=== PATIENT | female | born 1965 | race Caucasian/White ===

== ENCOUNTER 2017-10-12 19:47 | Observation (INO) | payer BC ==
[2017-10-12] MEDS ORDERED: SODIUM CHLORIDE 0.9% 1,000 ML IV STA (20:20)
[2017-10-12] MEDS ORDERED: NITROGLYCERIN SL TABS 0.4 MG TAB SUBLINGUAL STA (20:20)
[2017-10-12] MEDS ORDERED: ASPIRIN 81 MG PO STA (20:20)
--- NOTE | 2017-10-12 20:25 | ED ---
Chest Pain HPI - General Chief Complaint: Chest Pain Stated Complaint: chest pain Time Seen by Provider: 10/12/17 20:10 Source: patient, RN notes reviewed Mode of arrival: wheelchair Limitations: no limitations - History of Present Illness Initial Comments: This is a 52-year-old female with no prior history of heart disease who was cutting grass today started developing burning left-sided chest pain she has some nausea lightheadedness and dizziness. She did take an 81 mg aspirin. She states the pain waxes and wanes it maximizes 11/19 he has also radiated to her back. She has no cough or phlegm production no other modifying factors at this time. She was using a push mower at the time to cut the grass. MD Complaint: chest pain - Related Data Home Medications Medication Instructions Recorded Confirmed Escitalopram Oxalate [Lexapro] 10 mg PO DAILY 01/18/15 01/21/15 Hydrochlorothiazide 25 mg PO Q48H 01/18/15 01/21/15 Levothyroxine Sodium [Synthroid] 112 mcg PO HS 01/18/15 01/21/15 Lisinopril [Zestril] 2.5 mg PO DAILY 01/18/15 01/21/15 Omeprazole [PriLOSEC] 20 mg PO AC-BRKFST 01/18/15 01/21/15 Naproxen Sodium [Aleve] 440 mg PO DAILY 01/21/15 01/21/15 Selenium 100 mcg PO DAILY 01/21/15 01/21/15 Allergies Allergy/AdvReac Type Severity Reaction Status Date / Time cefaclor [From Ceclor] Allergy Rash/Hives Verified 10/12/17 19:53 celecoxib [From Celebrex] Allergy Rash/Hives, Verified 10/12/17 19:53 RED SKIN prednisone Allergy Dyspnea Verified 10/12/17 19:53 Review of Systems ROS Statement: Those systems with pertinent positive or pertinent negative responses have been documented in the HPI. ROS Other: All systems not noted in ROS Statement are negative. EKG Findings - EKG Results: EKG: interpreted by MAUREEN (Normal sinus rhythm of 98. Interval 138 QRS duration 98 QT since QTC of 366/[address]-T wave changes), sinus rhythm Past Medical History Past Medical History: GERD/Reflux, Hypertension, Thyroid Disorder Additional Past Medical History / Comment(s): HIATAL HERNIA History of Any Multi-Drug Resistant Organisms: None Reported Past Surgical History: Appendectomy, Cholecystectomy, Tonsillectomy, Tubal Ligation, Uterine Ablation Additional Past Surgical History / Comment(s): EYE SURGERY-BILATERAL, Past Anesthesia/Blood Transfusion Reactions: Motion Sickness, Postoperative Nausea & Vomiting (PONV) Past Psychological History: Anxiety, Depression Smoking Status: Former smoker Past Alcohol Use History: Occasional Past Drug Use History: None Reported - Past Family History Father Family Medical History: Cancer General Exam - General Exam Comments Initial Comments: This is a well-developed well-nourished awake alert oriented 3 female Limitations: no limitations General appearance: alert, anxious Head exam: Present: atraumatic, normocephalic, normal inspection Eye exam: Present: normal appearance, PERRL, EOMI. Absent: scleral icterus, conjunctival injection, periorbital swelling ENT exam: Present: normal exam, mucous membranes moist Neck exam: Present: normal inspection. Absent: tenderness, meningismus, lymphadenopathy Respiratory exam: Present: normal lung sounds bilaterally, chest wall tenderness (Reproducible tenderness palpation of the left chest wall and over the left paraspinous muscles between his scapula. This does not reproduce the patient's chief complaint pain). Absent: respiratory distress, wheezes, rales, rhonchi, stridor Cardiovascular Exam: Present: regular rate, normal rhythm, normal heart sounds. Absent: systolic murmur, diastolic murmur, rubs, gallop, clicks GI/Abdominal exam: Present: soft, normal bowel sounds. Absent: distended, tenderness, guarding, rebound, rigid Extremities exam: Present: normal inspection, full ROM, normal capillary refill. Absent: tenderness, pedal edema, joint swelling, calf tenderness Back exam: Present: normal inspection Neurological exam: Present: alert, oriented X3, CN II-XII intact Psychiatric exam: Present: normal affect, normal mood Skin exam: Present: warm, dry, intact, normal color. Absent: rash Course Vital Signs 10/12/17 10/12/17 10/12/17 19:49 20:20 20:29 Temperature 98.1 F Pulse Rate 108 H 75 Pulse Rate [ 91 Apical] Respiratory 20 18 Rate Blood Pressure 167/101 158/84 O2 Sat by Pulse 97 99 Oximetry Chest Pain MDM - MDM I did review the imaging and report no acute findings. Patient is having still intermittent episodes of chest discomfort her initial workup was negative however it's difficult to distinguish the seemingly reproducible pain from possible cardiac etiology. Patient be admitted with cardiology consultation Critical Care Time Critical Care Time: Yes Critical Care Time: 31 minutes of critical care time which includes initial presentation with history physical labs x-rays several reevaluation the patient discussed with patient regarding findings discussed with the admitting service admission orders and documentation of the above Disposition Clinical Impression: Unstable angina, Chest wall syndrome Disposition: ADMITTED IP TO THIS [facility] Condition: Stable Referrals: Erica Maradiaga III, MD [Primary Care Provider] - 1-2 days
[2017-10-12 20:32] LABS: Basophils % (A) 1 %; Eosinophils # (A) 0.2 k/uL (0-0.7); Eosinophils % (A) 3 %; HCT 43.9 % (34.0-46.0); HGB 15.4 gm/dL (11.4-16.0); Lymphocytes # (A) 2.6 k/uL (1.0-4.8); Lymphocytes % (A) 42 %; MCH 31.1 pg (25.0-35.0); MCV 88.8 fL (80.0-100.0); Mean Platelet Volume 7.7; Monocytes # (A) 0.4 k/uL (0-1.0); Monocytes % (A) 7 %; Neutrophils # (A) 2.6 k/uL (1.3-7.7); Neutrophils % (A) 43 %; Platelet Count 218 k/uL (150-450); RBC 4.94 m/uL (3.80-5.40); RDW 14.6 % (11.5-15.5); WBC 6.1 k/uL (3.8-10.6)
[2017-10-12 20:45] LABS: D-Dimer 0.47 mg/L FEU (<0.60); Partial Thromboplastin Time 22.9 sec (22.0-30.0); Prothrombin Time 9.8 sec (9.0-12.0)
--- NOTE | 2017-10-12 20:50 | XR ---
EXAMINATION: XR chest 2V DATE AND TIME: 10/12/2017 8:39 PM ORDERING PROVIDER: Elmer Colunga MD CLINICAL INDICATION: Chest Pain TECHNIQUE: PA and lateral COMPARISON: 09/28/2009 DESCRIPTION: The overlying soft tissues are prominent. Given this factor, the lungs appear to be yazmin r. The pleural spaces are negative. The cardiac silhouette is not enlarged. The mediastinal and pleur al silhouettes are unremarkable. The skeletal structures are intact without focal findings. IMPRESSION: NO ACUTE PROCESS.
[2017-10-12 20:52] LABS: ALT 116 U/L (9-52); AST 96 U/L (14-36); Albumin 4.6 g/dL (3.5-5.0); Alkaline Phosphatase 96 U/L (38-126); Amylase 59 U/L (30-110); Anion Gap 16 mmol/L; Blood Urea Nitrogen 15 mg/dL (7-17); Calcium 10.2 mg/dL (8.4-10.2); Carbon Dioxide 28 mmol/L (22-30); Chloride 97 mmol/L (98-107); Glucose 131 mg/dL (74-99); Lipase 252 U/L (23-300); Magnesium 1.6 mg/dL (1.6-2.3); Potassium 3.5 mmol/L (3.5-5.1); Sodium 141 mmol/L (137-145); Total Bilirubin 1.1 mg/dL (0.2-1.3); Total Protein 7.9 g/dL (6.3-8.2)
[2017-10-12 20:56] LABS: Creatine Kinase 22 U/L (30-135)
[2017-10-12 21:09] LABS: Troponin I <0.012 ng/mL (0.000-0.034)
[2017-10-12] MEDS ORDERED: NITROGLYCERIN SL TABS 0.4 MG TAB SUBLINGUAL PRN (21:53)
[2017-10-12] MEDS ORDERED: HEPARIN SODIUM,PORCINE 5,000 UNIT/ML 1 ML VIAL IV ONE (21:53)
[2017-10-12] MEDS ORDERED: SODIUM CHLORIDE 0.9% 1,000 ML IV SCH (22:00)
[2017-10-12] MEDS ORDERED: HEPARIN SODIUM,PORCINE/D5W PMX 25,000 UNIT in DEXTROSE/WATER 1 500ML.BAG IV SCH (22:15)
[2017-10-12] MEDS: NITROGLYCERIN OINT 1 INCH/GM PACKET TOPICAL SCH (22:31)
[2017-10-12 22:55] VITALS: BMI 39.1
[2017-10-12] MEDS ORDERED: LEVOTHYROXINE 112 MCG TAB PO STA (23:01)
[2017-10-13 02:15] LABS: Creatine Kinase <20 U/L (30-135)
[2017-10-13 02:27] LABS: Troponin I <0.012 ng/mL (0.000-0.034)
[2017-10-13 05:28] LABS: Cholesterol 189 mg/dL (<200); HDL Cholesterol 52 mg/dL (40-60); LDL Cholesterol,Calculated 111 mg/dL (0-99); Triglycerides 132 mg/dL (<150)
[2017-10-13 05:37] VITALS: PULSE 80; RESP 16
[2017-10-13] MEDS: NITROGLYCERIN OINT 1 INCH/GM PACKET TOPICAL SCH ×2 (06:25→11:42)
[2017-10-13] MEDS ORDERED: PANTOPRAZOLE 40 MG TABLET PO SCH (07:30)
[2017-10-13 08:09] LABS: Creatine Kinase <20 U/L (30-135)
[2017-10-13 08:22] LABS: Creatine Kinase MB 0.9 ng/mL (0.0-2.4); Troponin I <0.012 ng/mL (0.000-0.034)
[2017-10-13] MEDS ORDERED: ASPIRIN 325 MG TAB PO SCH (09:00)
[2017-10-13] MEDS ORDERED: LISINOPRIL 2.5 MG TAB PO SCH (09:00)
[2017-10-13] MEDS ORDERED: HYDROCHLOROTHIAZIDE 25 MG TAB PO SCH (09:00)
[2017-10-13] MEDS ORDERED: ESCITALOPRAM 10 MG TAB PO SCH (09:00)
[2017-10-13 12:11] VITALS: BP 112/63; TEMP 97.6
--- NOTE | 2017-10-13 14:06 | P.HPIM ---
History of Present Illness Patient is a very pleasant 52-year-old female came in with complaints of epigastric abdominal burning sensation which started when he when she was cutting grass. Although she does not believe it's gastroesophageal reflux disease. Patient is on naproxen and Prilosec at home. Patient was evaluated by cardiology patient pain is about 5/and 10 in severity nonpleuritic not associated with food nonradiating and not associated with the shortness of breath lightheadedness or diaphoresis. Patient had an EKG which was within normal limits and troponins were negative cardiac valid the patient they recommended outpatient follow-up in the stress test as an outpatient. Patient has mildly elevated liver enzymes Need to be tested as an outpatient in about a week or so for to make sure they're not going up. As of now no further intervention is being done for that. Patient wanted to go home. Review of Systems REVIEW OF SYSTEMS: CONSTITUTIONAL: No fever, no malaise, no fatigue. HEENT: No recent visual problems or hearing problems. Denied any sore throat. CARDIOVASCULAR: No orthopnea, PND, no palpitations, no syncope. PULMONARY: No shortness of breath, no cough, no hemoptysis. GASTROINTESTINAL: No diarrhea, no nausea, no vomiting, no abdominal pain. Normoactive bowel sounds. NEUROLOGICAL: No headaches, no weakness, no numbness. HEMATOLOGICAL: Denies any bleeding or petechiae. GENITOURINARY: Denies any burning micturition, frequency, or urgency. MUSCULOSKELETAL/RHEUMATOLOGICAL: Denies any joint pain, swelling, or any muscle pain. ENDOCRINE: Denies any polyuria or polydipsia. The rest of the 14-point review of systems is negative. Past Medical History Past Medical History: GERD/Reflux, Hypertension, Thyroid Disorder Additional Past Medical History / Comment(s): HIATAL HERNIA History of Any Multi-Drug Resistant Organisms: None Reported Past Surgical History: Appendectomy, Cholecystectomy, Tonsillectomy, Tubal Ligation, Uterine Ablation Additional Past Surgical History / Comment(s): EYE SURGERY-BILATERAL, Past Anesthesia/Blood Transfusion Reactions: Motion Sickness, Postoperative Nausea & Vomiting (PONV) Past Psychological History: Anxiety, Depression Smoking Status: Former smoker Past Alcohol Use History: Occasional Past Drug Use History: None Reported - Past Family History Father Family Medical History: Cancer Medications and Allergies Home Medications Medication Instructions Recorded Confirmed Type Escitalopram Oxalate [Lexapro] 10 mg PO DAILY 01/18/15 10/13/17 History Levothyroxine Sodium [Synthroid] 112 mcg PO HS 01/18/15 10/13/17 History Omeprazole [PriLOSEC] 20 mg PO AC-BRKFST 01/18/15 10/13/17 History Naproxen Sodium [Aleve] 440 mg PO DAILY 01/21/15 10/13/17 History Selenium 100 mcg PO DAILY 01/21/15 10/13/17 History Hydrochlorothiazide [Hydrodiuril] 12.5 mg PO DAILY 10/13/17 10/13/17 History Lisinopril [Zestril] 10 mg PO DAILY 10/13/17 10/13/17 History Allergies Allergy/AdvReac Type Severity Reaction Status Date / Time cefaclor [From Ceclor] Allergy Rash/Hives Verified 10/13/17 12:10 celecoxib [From Celebrex] Allergy Rash/Hives, Verified 10/13/17 12:10 RED SKIN prednisone Allergy Dyspnea Verified 10/13/17 12:10 Physical Exam Vitals: Vital Signs Temp Pulse Pulse Resp BP BP Pulse Ox 10/13/17 12:08 97.6 F 62 16 112/63 98 10/13/17 09:05 95 10/13/17 08:02 97.5 F L 55 L 16 108/65 97 10/13/17 04:00 80 16 148/70 98 10/13/17 00:00 75 16 132/64 97 10/12/17 22:33 97.1 F L 92 18 136/84 99 10/12/17 22:30 97 F L 78 16 120/60 97 10/12/17 20:29 75 18 158/84 99 10/12/17 20:20 91 10/12/17 19:49 98.1 F 108 H 20 167/101 97 Intake and Output 10/12/17 10/13/17 10/13/17 22:59 06:59 14:59 Intake Total 480 614.333 Balance 480 614.333 Intake: Intake, IV Titration 134.333 Amount Heparin Sodium,Porcine/ 134.333 D5w Pmx 25,000 unit In Dextrose/Water 1 500ml. bag @ 9.6 UNITS/KG/HR 20. 03 mls/hr IV .Q24H [facility] Rx #:[id number] Oral 480 480 Other: Voiding Method Toilet Toilet # Voids 1 1 Weight 106.7 kg 106.7 kg PHYSICAL EXAMINATION: GENERAL: The patient is alert and oriented x3, not in any acute distress. Well developed, well nourished. HEENT: Pupils are round and equally reacting to light. EOMI. No scleral icterus. No conjunctival pallor. Normocephalic, atraumatic. No pharyngeal erythema. No thyromegaly. CARDIOVASCULAR: S1 and S2 present. No murmurs, rubs, or gallops. PULMONARY: Chest is clear to auscultation, no wheezing or crackles. ABDOMEN: Soft, nontender, nondistended, normoactive bowel sounds. No palpable organomegaly. MUSCULOSKELETAL: No joint swelling or deformity. EXTREMITIES: No cyanosis, clubbing, or pedal edema. NEUROLOGICAL: Gross neurological examination did not reveal any focal deficits. SKIN: No rashes. Results CBC & Chem 7: 10/12/17 20:17 10/12/17 20:17 Labs: Abnormal Lab Results - Last 24 Hours (Table) 10/12/17 10/12/17 10/13/17 Range/Units 20:17 20:17 01:22 APTT (22.0-30.0) sec Chloride 97 L (98-107) mmol/L Glucose 131 H (74-99) mg/dL AST 96 H (14-36) U/L ALT 116 H (9-52) U/L Total Creatine Kinase 22 L <20 L (30-135) U/L LDL Cholesterol, Calc (0-99) mg/dL 10/13/17 10/13/17 10/13/17 Range/Units 04:32 04:32 07:26 APTT 45.0 H (22.0-30.0) sec Chloride (98-107) mmol/L Glucose (74-99) mg/dL AST (14-36) U/L ALT (9-52) U/L Total Creatine Kinase <20 L (30-135) U/L LDL Cholesterol, Calc 111 H (0-99) mg/dL Thrombosis Risk Factor Assmnt - Choose All That Apply Each Factor Represents 1 point: Age 41-60 years Thrombosis Risk Factor Assessment Total Risk Factor Score: 1 Thrombosis Risk Factor Assessment Level: Low Risk Assessment and Plan Plan: -Chest pain: Etiology is unclear patient was ruled out acute current symptoms recommended to get a stress test as an outpatient -patient does have history of gastroesophageal reflux disease does take Prilosec at home which will be continued. -Hypothyroidism - mildly elevated liver enzymes need to be retested as an outpatient, if they remain elevated patient will need further evaluation starting with the ultrasound of the liver gallbladder and hepatitis panel. -Hypertension -Depression Patient will be discharged to follow with the PCP and the cardiology as an outpatient and stress test as an outpatient. Repeat compressive metabolic profile as an outpatient.
--- NOTE | 2017-10-13 14:06 | P.DS ---
Providers Date of admission: 10/12/17 21:53 Attending physician: Axel Moreau Consults: 10/12/17 21:53 Consult Physician Urgent Consulting Provider: Monet Tamez Consult Reason/Comments: Chest pain Do you want consulting provider notified?: Yes Primary care physician: Erica Maradiaga [facility] Course: Please refer to my HPI Patient Condition at Discharge: Stable Plan - Discharge Summary Discharge Rx Participant: No New Discharge Prescriptions: No Action Escitalopram Oxalate [Lexapro] 10 mg PO DAILY Levothyroxine Sodium [Synthroid] 112 mcg PO HS Omeprazole [PriLOSEC] 20 mg PO AC-BRKFST Selenium 100 mcg PO DAILY Naproxen Sodium [Aleve] 440 mg PO DAILY Hydrochlorothiazide [Hydrodiuril] 12.5 mg PO DAILY Lisinopril [Zestril] 10 mg PO DAILY Discharge Medication List Escitalopram Oxalate [Lexapro] 10 mg PO DAILY 01/18/15 [History] Levothyroxine Sodium [Synthroid] 112 mcg PO HS 01/18/15 [History] Omeprazole [PriLOSEC] 20 mg PO AC-BRKFST 01/18/15 [History] Naproxen Sodium [Aleve] 440 mg PO DAILY 01/21/15 [History] Selenium 100 mcg PO DAILY 01/21/15 [History] Hydrochlorothiazide [Hydrodiuril] 12.5 mg PO DAILY 10/13/17 [History] Lisinopril [Zestril] 10 mg PO DAILY 10/13/17 [History] Follow up Appointment(s)/Referral(s): Tricia Sharma MD [STAFF PHYSICIAN] - 1 Week (office will call with appt) Erica Maradiaga III, MD [Primary Care Provider] - 3 Days Patient Instructions/Handouts: Angina (DC) Discharge Disposition: HOME SELF-CARE
--- NOTE | 2017-10-13 16:58 | CONS ---
CONSULTATION This is a 52-year-old lady who has a history of hypertension and takes lisinopril and also hypothyroidism on Synthroid. She came into the hospital with episode of chest pain. She was cutting the lawn and then she experienced sharp pain in the chest. The quality of the pain is very atypical, seems to come and go. It took her breath almost away. She felt that each time the episode of pain occurred it lasted a few seconds. With these symptoms she came to the hospital and symptoms have not recurred. She is feeling well. Her troponin levels are normal. She is resting without symptoms. PAST MEDICAL HISTORY: 1. Hypertension. 2. Hypothyroidism. 3. Mild depression. CURRENT MEDICATIONS: Medications at home include hydrochlorothiazide 12.5 mg daily, lisinopril 10 mg daily, Synthroid 112 mcg daily, omeprazole, and also takes Lexapro 10 mg daily. ALLERGIES: SHE IS ALLERGIC TO CECLOR, CELEBREX AND PREDNISONE. EXAMINATION: Blood pressure is 112/70, pulse rate 70 per minute and regular. HEENT: Unremarkable. Fundus was not examined by me. NECK: Supple. No JVD. I do not hear a carotid bruit. There is no thyromegaly. Heart exam reveals S1, S2 heard normally without a rub, murmur or gallop. Lungs are clear. Abdomen is soft, nontender. Lower extremities reveal normal pulses. No edema. Central nervous system is normal. EKG revealed sinus mechanism, no acute changes. IMPRESSION: 1. Atypical chest pain. 2. Hypertension. 3. Hypothyroidism. 4. Mild depression. RECOMMENDATION: I am recommending that we can increase activity and if she has no further symptoms, she can be discharged and I will perform outpatient stress test and echocardiogram for this lady and I have advised her not to do any strenuous activity and again reinforced risk factor modification issues. Thank you very much for the consult. MMODL / IJN: [id number] /
[2017-10-13] MEDS ORDERED: LEVOTHYROXINE 112 MCG TAB PO SCH (21:00)
== END 2017-10-13 12:46 | disposition home or self-care (01) ==
LOC: EC 19:47 → 6SEL 21:53
PROVIDERS: ADMIT Internal Medicine; ATTEND Internal Medicine
DX: R10.13 Epigastric pain (principal); R07.89 Other chest pain; R74.8 Abnormal levels of other serum enzymes; R11.0 Nausea; R42 Dizziness and giddiness; E03.9 Hypothyroidism, unspecified; K21.9 Gastro-esophageal reflux disease without esophagitis; I10 Essential (primary) hypertension; F41.9 Anxiety disorder, unspecified; F32.9 Major depressive disorder, single episode, unspecified; Z87.891 Personal history of nicotine dependence; Z88.8 Allergy status to other drugs, medicaments and biological substances; Z79.1 Long term (current) use of non-steroidal anti-inflammatories (NSAID); Z79.899 Other long term (current) drug therapy; Z79.890 Hormone replacement therapy; Z88.1 Allergy status to other antibiotic agents; Z90.49 Acquired absence of other specified parts of digestive tract; Z80.9 Family history of malignant neoplasm, unspecified
CPT/HCPCS: 99291 ×2; 96374 ×2; 96376 ×2; 96361 ×3; 36415; 94760; 93005; 85379; 83880; 80061; 80053; 82150; 82550 ×2; 82553 ×2; 83690; 83735; 84484 ×2; 85025; 85610; 85730 ×2; 71046; G0378 ×2; J1644 ×2

== ENCOUNTER → 2021-01-13 | Outpatient (CLI) | payer BC, OTHER ==
--- NOTE | 2021-01-17 16:04 | MR ---
EXAMINATION TYPE: MR brain wo con DATE OF EXAM: 01/13/2021 COMPARISON: None HISTORY: Migraines, and dizziness. CONTRAST: Performed utilizing 0 mL intravenous Gadavist gadolinium contrast. TECHNIQUE: Multiplanar, multiecho imaging on a 3.0 Laurence magnet is performed through the brain. Stud y is performed within 24 hours of arrival to the hospital. The craniovertebral junction is normal. The pituitary is normal. Diffusion-weighted imaging is performed. No abnormal hyperintensity is present to suggest an acute i ntracranial infarct or acute ischemic change. There are extensive punctate subcortical and deep white matter changes present. Periventricular and c entrum semiovale white matter changes are present. These number greater than 10-20 each side. The lar gest in the left butler radiata measures 0.8 x 0.6 cm. Series 501 image 18 Findings are nonspecific b ut can be related to microvascular ischemic change. Other etiologies including vasculitis, multiple s clerosis, migraine headaches, Lyme disease could be considered. Ventricles and sulci are appropriate for the patient age. Normal vascular flow voids are present. IMPRESSIONS: 1. Extensive punctate T2 and inversion recovery weighted hyperintensities are nonspecific. Consider m icrovascular ischemic change and multiple sclerosis within the differential. This is more than are ty pically identified with migraine headaches which is within the differential.
== END | disposition home or self-care (01) ==
LOC: RADMRIMAIN 21:41
PROVIDERS: ATTEND Nurse Practitioner Family
DX: R93.0 Abnormal findings on diagnostic imaging of skull and head, not elsewhere classified (principal)
CPT/HCPCS: 70551

== ENCOUNTER 2021-01-29 19:25 | Emergency (ER) | payer OTHER ==
[2021-01-29 19:35] VITALS: TEMP 97.9
[2021-01-29 20:06] VITALS: RESP 20
--- NOTE | 2021-01-29 20:23 | ED ---
General Adult HPI - General Chief complaint: Neuro Symptoms/Deficit Stated complaint: facial numbness, elevated BP Time Seen by Provider: 01/29/21 20:21 Source: patient Mode of arrival: ambulatory Limitations: no limitations - History of Present Illness Initial comments: Patient presents to the ED with her daughter for evaluation. Patient states that she developed numbness and a "pins and needles" sensation to her bilateral cheeks, as well as her bilateral hands, at about 1:30 PM today. She states that she has had these symptoms in the past when her blood pressure has been elevated, so she decided to check her blood pressure, and she obtained a reading of 176/120. Patient states that she realizes that she did not take her morning blood pressure medications, so she took them at that time. Patient states that her symptoms continued into the evening, so she decided to retake her blood pressure this evening, and she obtained a reading of 175/104, so she decided to come to the emergency room. Patient denies having any pain, fever or chills, headache, focal weakness, visual changes, speech difficulty, dizziness, neck/back/extremity pain, chest pain, dyspnea, palpitations, abdominal pain, nausea/vomiting/diarrhea, dysuria or urinary symptoms, decreased urine output, or any other symptoms or complaints. - Related Data Home Medications Medication Instructions Recorded Confirmed Escitalopram Oxalate [Lexapro] 10 mg PO HS 01/18/15 01/29/21 Aspirin/Acetaminophen/Caffeine 2 tab PO DAILY PRN 01/29/21 01/29/21 [Excedrin Migraine Caplet] Emgality(Unknown Dose) 1 dose SQ Q30D 01/29/21 01/29/21 Lasmiditan Succinate [Reyvow] 100 mg PO DIRECTED PRN 01/29/21 01/29/21 Levothyroxine Sodium [Tirosint] 125 mcg PO DIRECTED 01/29/21 01/29/21 Lisinopril [Prinivil] 10 mg PO DAILY 01/29/21 01/29/21 Topiramate [Topamax] 50 mg PO BID 01/29/21 01/29/21 Allergies Allergy/AdvReac Type Severity Reaction Status Date / Time cefaclor [From Ceclor] Allergy Rash/Hives Verified 01/29/21 21:47 celecoxib [From Celebrex] Allergy Rash/Hives, Verified 01/29/21 21:47 RED SKIN methylprednisolone Allergy Dyspnea/Keagan Verified 01/29/21 21:47 [From Medrol] h Review of Systems ROS Statement: Those systems with pertinent positive or pertinent negative responses have been documented in the HPI. ROS Other: All systems not noted in ROS Statement are negative. Past Medical History Past Medical History: GERD/Reflux, Hypertension, Thyroid Disorder Additional Past Medical History / Comment(s): HIATAL HERNIA History of Any Multi-Drug Resistant Organisms: None Reported Past Surgical History: Appendectomy, Cholecystectomy, Tonsillectomy, Tubal Ligation, Uterine Ablation Additional Past Surgical History / Comment(s): EYE SURGERY-BILATERAL, Past Anesthesia/Blood Transfusion Reactions: Motion Sickness, Postoperative Nausea & Vomiting (PONV) Past Psychological History: Anxiety, Depression Smoking Status: Never smoker Past Alcohol Use History: Occasional Past Drug Use History: None Reported - Past Family History Father Family Medical History: Cancer General Exam Limitations: no limitations General appearance: alert, in no apparent distress Head exam: Present: atraumatic, normocephalic Eye exam: Present: normal appearance, PERRL, EOMI ENT exam: Present: mucous membranes moist Neck exam: Present: other (Trachea is in midline). Absent: tenderness, meningismus Respiratory exam: Present: normal lung sounds bilaterally. Absent: respiratory distress, wheezes, rales, rhonchi, stridor Cardiovascular Exam: Present: regular rate, normal rhythm, normal heart sounds, other (Normal radial pulses bilaterally) GI/Abdominal exam: Present: soft. Absent: distended, tenderness, guarding Extremities exam: Present: full ROM. Absent: tenderness, pedal edema Back exam: Absent: tenderness Neurological exam: Present: alert, oriented X3, CN II-XII intact. Absent: motor sensory deficit Psychiatric exam: Present: normal affect, normal mood Skin exam: Present: warm, dry, intact, normal color Course Vital Signs 01/29/21 01/29/21 01/29/21 19:32 20:05 20:58 Temperature 97.9 F Pulse Rate 78 67 68 Respiratory 19 20 20 Rate Blood Pressure 170/107 158/94 151/96 O2 Sat by Pulse 99 97 97 Oximetry 01/29/21 21:56 Temperature Pulse Rate 61 Respiratory 20 Rate Blood Pressure 151/83 O2 Sat by Pulse 98 Oximetry - Reevaluation(s) Reevaluation #1: 01/29/21 22:39 Patient states that her symptoms have now improved, and she denies development of any new symptoms while in the ED. Patient's blood pressure has now improved as well. Patient continues to have a normal neurological exam. Patient and daughter are aware the patient's test results, and patient feels comfortable g oing home with her daughter at this time. Patient was counseled about hypertension and paresthesias. Patient was instructed to take her blood pressure medications regularly as prescribed, and she was also advised to follow up closely with her primary care provider. Patient was also instructed to have a low threshold for return to the emergency room should her symptoms worsen. Patient was clearly explained return and follow-up instructions. Patient feels comfortable with this plan. EKG Findings - EKG Comments: EKG Findings:: Normal sinus rhythm, no ectopy, ventricular rate of 66 bpm, normal AK and QRS intervals, normal QT interval, normal axis, no ST or T-wave abnormality Medical Decision Making - Medical Decision Making Patient's EKG, labs and CT head imaging are all fairly unremarkable. Patient's blood pressure has improved while in the ED. Patient has a normal/nonfocal neurological exam. I do not think that the patient's elevated blood pressure and paresthesias are due to an emergent medical condition. Will discharge patient home with her daughter at this time. - Lab Data Result diagrams: 01/29/21 20:39 01/29/21 20:39 Lab Results 01/29/21 01/29/21 01/29/21 Range/Units 20:39 20:39 20:39 WBC 5.7 (3.8-10.6) k/uL RBC 4.72 (3.80-5.40) m/uL Hgb 14.8 (11.4-16.0) gm/dL Hct 42.1 (34.0-46.0) % MCV 89.1 (80.0-100.0) fL MCH 31.4 (25.0-35.0) pg MCHC 35.2 (31.0-37.0) g/dL RDW 14.3 (11.5-15.5) % Plt Count 257 (150-450) k/uL MPV 8.1 Neutrophils % (Manual) 49 % Lymphocytes % (Manual) 43 % Monocytes % (Manual) 4 % Eosinophils % (Manual) 2 % Basophils % (Manual) 2 % Neutrophils # (Manual) 2.79 (1.3-7.7) k/uL Lymphocytes # (Manual) 2.45 (1.0-4.8) k/uL Monocytes # (Manual) 0.23 (0-1.0) k/uL Eosinophils # (Manual) 0.11 (0-0.7) k/uL Basophils # (Manual) 0.11 (0-0.2) k/uL Nucleated RBCs 0 (0-0) /100 WBC Manual Slide Review Performed PT 10.4 (9.0-12.0) sec INR 1.0 (<1.2) APTT 24.9 (22.0-30.0) sec Sodium 139 (137-145) mmol/L Potassium 3.9 (3.5-5.1) mmol/L Chloride 106 (98-107) mmol/L Carbon Dioxide 23 (22-30) mmol/L Anion Gap 10 mmol/L BUN 10 (7-17) mg/dL Creatinine 0.75 (0.52-1.04) mg/dL Est GFR (CKD-EPI)AfAm >90 (>60 ml/min/1.73 sqM) Est GFR (CKD-EPI)NonAf >90 (>60 ml/min/1.73 sqM) Glucose 145 H (74-99) mg/dL Calcium 9.8 (8.4-10.2) mg/dL Total Bilirubin 1.1 (0.2-1.3) mg/dL AST 36 (14-36) U/L ALT 31 (4-34) U/L Alkaline Phosphatase 102 (38-126) U/L Troponin I (0.000-0.034) ng/mL Total Protein 7.3 (6.3-8.2) g/dL Albumin 4.1 (3.5-5.0) g/dL 01/29/21 Range/Units 20:39 WBC (3.8-10.6) k/uL RBC (3.80-5.40) m/uL Hgb (11.4-16.0) gm/dL Hct (34.0-46.0) % MCV (80.0-100.0) fL MCH (25.0-35.0) pg MCHC (31.0-37.0) g/dL RDW (11.5-15.5) % Plt Count (150-450) k/uL MPV Neutrophils % (Manual) % Lymphocytes % (Manual) % Monocytes % (Manual) % Eosinophils % (Manual) % Basophils % (Manual) % Neutrophils # (Manual) (1.3-7.7) k/uL Lymphocytes # (Manual) (1.0-4.8) k/uL Monocytes # (Manual) (0-1.0) k/uL Eosinophils # (Manual) (0-0.7) k/uL Basophils # (Manual) (0-0.2) k/uL Nucleated RBCs (0-0) /100 WBC Manual Slide Review PT (9.0-12.0) sec INR (<1.2) APTT (22.0-30.0) sec Sodium (137-145) mmol/L Potassium (3.5-5.1) mmol/L Chloride (98-107) mmol/L Carbon Dioxide (22-30) mmol/L Anion Gap mmol/L BUN (7-17) mg/dL Creatinine (0.52-1.04) mg/dL Est GFR (CKD-EPI)AfAm (>60 ml/min/1.73 sqM) Est GFR (CKD-EPI)NonAf (>60 ml/min/1.73 sqM) Glucose (74-99) mg/dL Calcium (8.4-10.2) mg/dL Total Bilirubin (0.2-1.3) mg/dL AST (14-36) U/L ALT (4-34) U/L Alkaline Phosphatase (38-126) U/L Troponin I <0.012 (0.000-0.034) ng/mL Total Protein (6.3-8.2) g/dL Albumin (3.5-5.0) g/dL - Radiology Data Radiology results: report reviewed (Noncontrast head CT is negative) Disposition Clinical Impression: Paresthesias, Elevated blood pressure reading Disposition: HOME SELF-CARE Condition: Stable Instructions (If sedation given, give patient instructions): Paresthesia (ED), Hypertension (ED) Additional Instructions: Return to the ER immediately should you develop new or worsening numbness, focal weakness, problems with your vision or speech, dizziness, chest pain or pressure, shortness of breath, feeling dizzy or faint, or new or worsening symptoms. Follow up closely with your primary care provider. Is patient prescribed a controlled substance at d/c from ED?: No Referrals: Erica Maradiaga III, MD [Primary Care Provider] - 1-2 days Time of Disposition: 22:42
[2021-01-29] MEDS ORDERED: ONDANSETRON 4 MG/2 ML VIAL IVP STA (21:00)
[2021-01-29 21:14] LABS: HCT 42.1 % (34.0-46.0); HGB 14.8 gm/dL (11.4-16.0); MCH 31.4 pg (25.0-35.0); MCHC 35.2 g/dL (31.0-37.0); MCV 89.1 fL (80.0-100.0); Mean Platelet Volume 8.1; Platelet Count 257 k/uL (150-450); RBC 4.72 m/uL (3.80-5.40); RDW 14.3 % (11.5-15.5); WBC 5.7 k/uL (3.8-10.6)
[2021-01-29 21:16] LABS: Partial Thromboplastin Time 24.9 sec (22.0-30.0); Prothrombin Time 10.4 sec (9.0-12.0)
[2021-01-29 21:35] LABS: Basophils # (M) 0.11 k/uL (0-0.2); Eosinophils # (M) 0.11 k/uL (0-0.7); Lymphocytes # (M) 2.45 k/uL (1.0-4.8); Monocytes # (M) 0.23 k/uL (0-1.0); Neutrophils # (M) 2.79 k/uL (1.3-7.7); Neutrophils % (M) 49 %; Nucleated Red Blood Cells 0 /100 WBC (0-0); Total Cells Counted 100
--- NOTE | 2021-01-29 22:18 | CT ---
EXAMINATION TYPE: CT brain wo con DATE OF EXAM: 01/29/2021 COMPARISON: None HISTORY: dizzy CT DLP: 1174.4 mGycm Automated exposure control for dose reduction was used. Ventricles have normal size. There is no mass effect nor midline shift. There is no sign of intracran ial hemorrhage. Calvarium is intact. There is fairly normal aeration of the mastoid sinuses. IMPRESSION: Negative unenhanced head CT scan.
[2021-01-29 22:32] LABS: ALT 31 U/L (4-34); AST 36 U/L (14-36); African American GFR (CKD) >90 (>60 ml/min/1.73 sqM); Albumin 4.1 g/dL (3.5-5.0); Alkaline Phosphatase 102 U/L (38-126); Anion Gap 10 mmol/L; Blood Urea Nitrogen 10 mg/dL (7-17); Calcium 9.8 mg/dL (8.4-10.2); Carbon Dioxide 23 mmol/L (22-30); Chloride 106 mmol/L (98-107); Glucose 145 mg/dL (74-99); Non-African American GFR(CKD) >90 (>60 ml/min/1.73 sqM); Potassium 3.9 mmol/L (3.5-5.1); Sodium 139 mmol/L (137-145); Total Bilirubin 1.1 mg/dL (0.2-1.3); Total Protein 7.3 g/dL (6.3-8.2)
[2021-01-29 22:46] VITALS: BP 131/86; PULSE 60
== END 2021-01-29 22:53 | disposition home or self-care (01) ==
LOC: EC 19:25
DX: R20.2 Paresthesia of skin (principal); I10 Essential (primary) hypertension; K21.9 Gastro-esophageal reflux disease without esophagitis; E07.9 Disorder of thyroid, unspecified; F41.9 Anxiety disorder, unspecified; F32.9 Major depressive disorder, single episode, unspecified; Z79.82 Long term (current) use of aspirin; Z88.1 Allergy status to other antibiotic agents; Z88.6 Allergy status to analgesic agent; Z90.49 Acquired absence of other specified parts of digestive tract; Z90.89 Acquired absence of other organs; Z98.51 Tubal ligation status
CPT/HCPCS: 36415; 70450; 80053; 84484; 85025; 85610; 85730; 93005; 99284

== ENCOUNTER → 2021-04-11 | Outpatient (CLI) | payer OTHER ==
--- NOTE | 2021-04-12 05:05 | MR ---
EXAMINATION TYPE: MR hand RT wo/w con DATE OF EXAM: 04/11/2021 COMPARISON: None HISTORY: Right hand pain and swelling for 3 months. Attention to ring finger/ 4th metacarpal. Possibl e mass 4th middle phalanx CONTRAST: Standard multiplanar, multisequence MRI departmental protocol images were obtained without contrast a nd with 10 mL intravenous Gadavist gadolinium contrast. Metacarpals are intact. The phalanges appear intact. Joint spaces are fairly normal. I see no bony de structive process. There is no evidence of a fracture. There is some mild enhancement around the ante rior aspect of the ring finger around the flexor tendon at the middle phalanx and the distal aspect o f the proximal phalanx. There is mild subcutaneous edema anterior to the ring finger and little finge r. There is no evidence of flexor tendon tear. The distal radius and ulna appear intact. Carpal bones are intact. Metacarpals appear normal. IMPRESSION: Enhancement around the flexor tendon of the ring finger consistent with tendinitis. No retraction. Mi ld subcutaneous edema anterior to the ring finger and little finger.
== END | disposition home or self-care (01) ==
LOC: RADMRIMAIN 12:05
PROVIDERS: ATTEND Orthopaedic Surgery Hand Surgery
DX: M65.241 Calcific tendinitis, right hand (principal); R60.0 Localized edema
CPT/HCPCS: 73220; A9585

== ENCOUNTER → 2021-05-02 | Outpatient (CLI) | payer OTHER | END | disposition home or self-care (01) | LOC: LABPAT 07:01 | PROVIDERS: ATTEND Nurse Practitioner Family | DX: Z01.812 Encounter for preprocedural laboratory examination (principal) | CPT/HCPCS: 93005 ==

== ENCOUNTER 2021-05-10 11:47 | Day surgery (SDC) | payer OTHER ==
[2021-05-03 11:38] VITALS: BMI 37.3
--- NOTE | 2021-05-08 13:13 | P.HPOR ---
History of Present Illness H&P Date: 05/08/21 Chief Complaint: Right ring finger trigger finger Subjective: This is a 56 year old female that presents today for follow up evaluation regarding right ring finger pain and stiffness that has been present for 4-5 months. She denies any injury in the past and notices pain around the A1 jean pierre area that radiates into the palm. She denies any current paresthesias. 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 Physical Examination: RUE: AIN/PIN/Radial/Ulnar/Median motor intact. Radial/Ulnar/Median SILT. 2+/4 Radial/Ulnar pulses palpated. Warba neck deformities present in index, middle, ring, and small digits. TTP over A1 Jean Pierre of right right finger. Imaging: MRI of the right hand demonstrates no signs of cortical disruption along ring finger. She has diffuse swelling/edema in the flexor tendon sheath of the ring finger. Impression: 1.) Right ring finger trigger finger Plan: Diagnosis and treatment options were discussed with the patient. We discussed possible steroid injection vs A1 jean pierre release. She states she has had a reaction to steroids in the past causing a rash and tingling around her throat area, therefore I recommend avoiding any type steroid injection. Risks and benefits of trigger finger release including bleeding, damage to surrounding tissue, need for further surgery were discussed and she wishes to proceed. She will obtain PCP clearance and will be scheduled for surgery in the near future. The patient was agreeable with this plan of action. -Norberto Jain DO Orthopedic Hand/Upper Extremity Surgeon Past Medical History Past Medical History: GERD/Reflux, Hypertension, Thyroid Disorder Additional Past Medical History / Comment(s): HIATAL HERNIA, Migraines which "sometimes cause brain fog, confusion and may stumble over my words". History of Any Multi-Drug Resistant Organisms: None Reported Past Surgical History: Appendectomy, Cholecystectomy, Tonsillectomy, Tubal Ligation, Uterine Ablation Additional Past Surgical History / Comment(s): EYE SURGERY-BILATERAL. Past Anesthesia/Blood Transfusion Reactions: Motion Sickness, Postoperative Sushil sea & Vomiting (PONV) Additional Past Anesthesia/Blood Transfusion Reaction / Comment(s): Dad slow to wake up, allergic to Fentanyl. Past Psychological History: Anxiety, Depression Smoking Status: Former smoker Past Alcohol Use History: None Reported Additional Past Alcohol Use History / Comment(s): Quit smoking 5 yrs ago. Additional Drug Use History / Comment(s): CBD gummies daily @ hs. Aware no use 24 hrs prior to procedure. - Past Family History Mother Family Medical History: Cancer Additional Family Medical History / Comment(s): Skin Cancer. Father Family Medical History: Cancer Additional Family Medical History / Comment(s): Prostate, testiscular cancer. Medications and Allergies Home Medications Medication Instructions Recorded Confirmed Type Escitalopram Oxalate [Lexapro] 10 mg PO HS 01/18/15 05/03/21 History Aspirin/Acetaminophen/Caffeine 2 tab PO DAILY PRN 01/29/21 05/03/21 History [Excedrin Migraine Caplet] Lasmiditan Succinate [Reyvow] 100 mg PO DIRECTED PRN 01/29/21 05/03/21 History Levothyroxine Sodium [Tirosint] 125 mcg PO HS 01/29/21 05/03/21 History Lisinopril [Prinivil] 10 mg PO QAM 01/29/21 05/03/21 History Topiramate [Topamax] 50 mg PO BID 01/29/21 05/03/21 History Ascorbic Acid [Vitamin C] 500 mg PO DAILY 05/03/21 05/03/21 History Cholecalciferol [Vitamin D3 (125 125 mcg PO DAILY 05/03/21 05/03/21 History Mcg = 5000 Iu)] Galcanezumab-Gnlm [Emgality Pen] 120 mg SQ Q30D 05/03/21 05/03/21 History OXcarbazepine [Trileptal] 150 mg PO HS 05/03/21 05/03/21 History Selenium 200 mcg PO DAILY 05/03/21 05/03/21 History Ubrogepant [Ubrelvy] 100 mg PO DIRECTED PRN 05/03/21 05/03/21 History Allergies Allergy/AdvReac Type Severity Reaction Status Date / Time cefaclor [From Ceclor] Allergy Rash/Hives Verified 05/03/21 11:18 celecoxib [From Celebrex] Allergy Rash/Hives, Verified 05/03/21 11:18 RED SKIN methylprednisolone Allergy Dyspnea/Keagan Verified 05/03/21 11:18 [From Medrol] h Physical Examination Osteopathic Statement: *. No significant issues noted on an osteopathic structural exam other than those noted in the History and Physical/Consult.
[~2021-05-10 11:47] MED LIST: HYDROmorphone 0.5 MG/0.5 ML SYRINGE IVP PRN; LACTATED RINGERS 1,000 ML IV SCH; LIDOCAINE 1% (10MG/ML) FOR IV START INTRADERMA PRN; ONDANSETRON 4 MG/2 ML VIAL IVP PRN; Pre Op ABX Message 1 EACH MISC MISCELLANE ONE
[2021-05-10 12:27] VITALS: TEMP 98
[2021-05-10] MEDS ORDERED: PROPOFOL 10 MG/ML 20 ML VIAL IV ONE (12:53)
[2021-05-10] MEDS ORDERED: fentaNYL (PF) 50 MCG/ML 2 ML AMP ONE (12:53)
[2021-05-10] MEDS ORDERED: MIDAZOLAM 2 MG/2 ML VIAL ONE (12:53)
[2021-05-10] MEDS ORDERED: LIDOCAINE 0.5% (PF) 5 MG/ML (50 ML SDV) SQ ONE (13:09)
[2021-05-10] MEDS ORDERED: LIDOCAINE 1% INJ 10MG/ML (10 ML MDV) SQ ONE (13:10)
[2021-05-10 13:27] VITALS: BP 125/80; PULSE 73; RESP 10
--- NOTE | 2021-05-10 18:36 | P.OP ---
Date of Procedure: 05/10/21 Preoperative Diagnosis: Right ring finger trigger finger Postoperative Diagnosis: Right ring finger trigger finger Procedure(s) Performed: Right ring finger A1 jean pierre release Anesthesia: MAC Surgeon: Norberto Jain Card Cutter #1: Edvin Smallwood Estimated Blood Loss (ml): 0 Pathology: none sent Condition: stable Disposition: PACU Description of Procedure: This is a 56 year old femal who presents today for a right ring finger trigger finger A1 jean pierre release after having failed conservative treatment. Risks and benefits of surgery were discussed with the patient including bleeding, damage to surrounding tissue, infection, need for further surgery as well as risks of anesthesia including pulmonary embolism and even and the patient wished to proceed with surgical intervention. The patient was seen in the pre-operative area by myself. Consent and H&P were completed and updated. The correct extremity was marked in the pre-operative area by myself and all other questions were answered. Operative Narrative: The patient was brought to the operating room by the department of anesthesia. They remained on the portable stretcher and a rolling hand table was brought to the side of the operative extremity. Pre-operative time out was performed indicating the correct patient, procedure and laterality. All in the room agreed. Pre-operative antibiotics were given prior to skin incision. The patient was then drifted off to sleep by the department of anesthesia. MAC anesthesia was utilized and a 50:50 mixture of 1% Lidocaine and 0.5% bupivacaine was injected into the subcutaneous tissues of the palmar skin, 4ccs total. A nonsterile tourniquet was then applied to the operative extremity and the right upper extremity was then prepped and draped in normal sterile fashion. The operative extremity was the exsanguinated with an esmarch bandage and the tourniquet was inflated to 250mmHg. Oblique incision was made at the base of the right ring finger. Blunt dissection was taken down to the level of the A1 jean pierre. Ragnell retractors were placed both radially and ulnarly to protect neurovascular bundles. Littler tenotomy scissors were then used to release the A1 jean pierre from proximal to distal under direct visualization. Proximal fascial attachments were released. The tendon was then taken through range of motion and no locking or catching was appreciated. The wound was then closed with interrupted 4-0 nylon sutures in a horizontal mattress fashion. Sterile dressing consisting of adaptic, 4x4s, webril, and an yuli wrap was applied. Tourniquet was let down and the hand was immediately well perfused. The patient was then woken by the department of anesthesia and transferred to PACU in stable condition. Norberto Jain D.O. Orthopedic Hand/Upper Extremity Surgeon
== END 2021-05-10 14:09 | disposition home or self-care (01) ==
LOC: OR 11:47
PROVIDERS: ATTEND Orthopaedic Surgery Hand Surgery
DX: M65.341 Trigger finger, right ring finger (principal); K21.9 Gastro-esophageal reflux disease without esophagitis; I10 Essential (primary) hypertension; F41.9 Anxiety disorder, unspecified; F32.9 Major depressive disorder, single episode, unspecified; E05.00 Thyrotoxicosis with diffuse goiter without thyrotoxic crisis or storm; G43.909 Migraine, unspecified, not intractable, without status migrainosus; Z79.899 Other long term (current) drug therapy; Z87.891 Personal history of nicotine dependence; Z88.1 Allergy status to other antibiotic agents; Z88.8 Allergy status to other drugs, medicaments and biological substances
CPT/HCPCS: 26055; J2250; J2405; J2001 ×2; J3010; J2704

== ENCOUNTER → 2021-11-02 | Outpatient (CLI) | payer OTHER ==
--- NOTE | 2021-11-02 15:48 | P.SLEEP ---
History of Present Illness DATE: 11/02/2021 CONSULTATION/NEW PATIENT EVALUATION 56-year-old lady has been alluded to sleep center for possible obstructive sleep apnea hypopnea syndrome HISTORY OF PRESENT ILLNESS/SLEEP-WAKE EVALUATION: SLEEP SCHEDULE: from 10-11 PM to 6:30 AM basically 7 days a week. FALLING ASLEEP: Occasionally difficulties with the falling asleep although no TV in bedroom. DURING SLEEP: Patient snores, wakes up from sleep several times with up to 2 episodes of nocturia. Episodes of migraines during sleep DURING THE DAY/WAKE STATE: Patient may wake up from sleep with migraine. Has difficulties to pay attention during the day following to sleep during the day is probably the main memory, concentration, depression, and anxiety. [place] sleepiness scale significantly increased to 12. Some days patient may feel significantly sleepy for the whole day. PAST MEDICAL HISTORY: Hypertension, chronic migraine, Graves disease with status post iodine treatment and subsequently hypothyroidism. Past surgical history: Tonsillectomy, cholecystectomy, tubal ligation, Lasic surgery MEDICATIONS: Topiramate 50 mg 3 tablets daily, Escitalopram 10 mg once a day, lisinopril 10 mg once a day, BLANK DRILLER thyroid 60 g once a day, Qulipta 60 mg once a day FAMILY HISTORY: Sleep apnea, COPD, cancer, acid reflux, mental illness. SOCIAL HISTORY: Positive history of smoking for about 22 pack years, quit 10 years ago, alcohol consumption rarely. REVIEW OF SYSTEMS: Snoring, multiple awakenings from sleep. Migraines. No feve rs. No double vision. No recent chest pain. No shortness of breath. No abdominal pain. No bleeding episodes. No blood in urine. No seizure episodes. PHYSICAL EXAMINATION: GENERAL: A pleasant patient without any distress. VITAL SIGNS: BP 141/91 , HR 64 , RR 16 , weight 236, body mass index 37.8, height 5 foot 6-1/4 inches. HEENT: PERRLA, EOMI. Evaluation of oropharynx showed tongue protrudes midline. Extremely low position of soft palate Mallampati 4. NECK: Supple. No JVD. Thyroid is not palpable. LUNGS: Clear to percussion and to auscultation. Good air exchange. No wheezing or rhonchi. HEART: S1, S2 regular. No murmurs, gallops or rubs. ABDOMEN: Soft and nontender. Bowel sounds are present. No organomegaly appreciated. Obese EXTREMITIES: No clubbing or cyanosis. FACILITY REHAB DIRECTOR: Awake, alert, and oriented x3. Cranial nerves 2 to 7 intact. There is no fasciculation or atrophy noted. No focal deficits observed. ASSESSMENT: 1. Snoring, multiple awakenings from sleep, extremely low position of soft palate, white neck 17-1/3 inches in circumference, sleepiness [place] Sleepiness Scale 12. Obstructive sleep apnea-hypopnea syndrome. 2. Migraine 3. Obesity body mass index 37.8. 4. Hypertension 5. History of Graves disease, status post radioactive iodine treatment, hypothyroidism. 6. Status post tonsillectomy. Next 7. Status post cholecystectomy. 8. Status post tubal ligation. 9. Status post Lasic surgery. PLAN: 1. Polysomnography for evaluation of patient's breathing during sleep. 2. CPAP/BiPAP titration if sleep study confirms obstructive sleep apnea- hypopnea syndrome. 3. Preferable position during sleep on the side. 4. No driving if patient feels any sleepiness. Patient is aware of civil and criminal liability for unsafe driving. 5. I will see patient for follow-up visit to explain results of the testing and following plan. Sincerely, Presley Mccormick MD, PhD, FAASM. Diplomat of [place] [employer], Sleep Medicine Board by [place] [employer] [employer] Instructor of [employer] [facility] [employer] Past Medical History Past Medical History: GERD/Reflux, Hypertension, Thyroid Disorder Additional Past Medical History / Comment(s): HIATAL HERNIA History of Any Multi-Drug Resistant Organisms: None Reported Past Surgical History: Appendectomy, Cholecystectomy, Tonsillectomy, Tubal Ligation, Uterine Ablation Additional Past Surgical History / Comment(s): EYE SURGERY-BILATERAL, Past Anesthesia/Blood Transfusion Reactions: Motion Sickness, Postoperative Nausea & Vomiting (PONV) Smoking Status: Never smoker Past Alcohol Use History: Occasional - Past Family History Mother Family Medical History: Cancer Father Family Medical History: Cancer Medications and Allergies Home Medications Medication Instructions Recorded Confirmed Type Escitalopram Oxalate [Lexapro] 10 mg PO HS 01/18/15 05/10/21 History Aspirin/Acetaminophen/Caffeine 2 tab PO DAILY PRN 01/29/21 05/10/21 History [Excedrin Migraine Caplet] Lasmiditan Succinate [Reyvow] 100 mg PO DIRECTED PRN 01/29/21 05/10/21 History Levothyroxine Sodium [Tirosint] 125 mcg PO HS 01/29/21 05/10/21 History Topiramate [Topamax] 50 mg PO BID 01/29/21 05/10/21 History lisinopriL [Prinivil] 10 mg PO QAM 01/29/21 05/10/21 History Ascorbic Acid [Vitamin C] 500 mg PO DAILY 05/03/21 05/10/21 History Cholecalciferol [Vitamin D3 (125 125 mcg PO DAILY 05/03/21 05/10/21 History Mcg = 5000 Iu)] Galcanezumab-Gnlm [Emgality Pen] 120 mg SQ Q30D 05/03/21 05/10/21 History OXcarbazepine [Trileptal] 150 mg PO HS 05/03/21 05/10/21 History Selenium 200 mcg PO DAILY 05/03/21 05/10/21 History Ubrogepant [Ubrelvy] 100 mg PO DIRECTED PRN 05/03/21 05/10/21 History Allergies Allergy/AdvReac Type Severity Reaction Status Date / Time cefaclor [From Ceclor] Allergy Rash/Hives Verified 05/10/21 12:27 celecoxib [From Celebrex] Allergy Rash/Hives, Verified 05/10/21 12:27 RED SKIN methylprednisolone Allergy Dyspnea/Keagan Verified 05/10/21 12:27 [From Medrol] h Sleep Note - Sleep Note Sleep Note: Temperature: Pulse Rate: Respiratory Rate: Blood Pressure: SpO2: Height: Weight: BMI: Neck Circumference:
== END ==
LOC: SLEEP 14:32
PROVIDERS: ATTEND Internal Medicine
DX: G47.33 Obstructive sleep apnea (adult) (pediatric) (principal); G43.909 Migraine, unspecified, not intractable, without status migrainosus; E66.9 Obesity, unspecified; I10 Essential (primary) hypertension; Z68.37 Body mass index [BMI] 37.0-37.9, adult; E03.9 Hypothyroidism, unspecified; Z90.09 Acquired absence of other part of head and neck; Z90.49 Acquired absence of other specified parts of digestive tract; Z86.39 Personal history of other endocrine, nutritional and metabolic disease; Z98.51 Tubal ligation status; Z79.890 Hormone replacement therapy; Z79.899 Other long term (current) drug therapy; Z98.890 Other specified postprocedural states; Z87.891 Personal history of nicotine dependence; Z88.1 Allergy status to other antibiotic agents; Z88.8 Allergy status to other drugs, medicaments and biological substances
CPT/HCPCS: 99211

== ENCOUNTER → 2021-12-18 | Outpatient (CLI) | payer OTHER ==
--- NOTE | 2021-12-19 06:00 | MR ---
EXAMINATION TYPE: MR angio head wo con DATE OF EXAM: 12/18/2021 COMPARISON: None HISTORY: Chronic migraines, dizziness. MR angiographic images were obtained of the intracerebral arterial circulation with no contrast. There is arterial flow in the distal internal carotid arteries bilaterally. There is arterial flow in the anterior middle and posterior cerebral arteries bilaterally. There is arterial flow in the verte bral basilar artery system. There is no mass effect. No evidence of intracranial aneurysm or neovascu larity. No evidence of hemodynamic stenosis. IMPRESSION: Normal MR angiogram of the brain.
== END | disposition home or self-care (01) ==
LOC: RADMRIMAIN 19:26
PROVIDERS: ATTEND Psychiatry & Neurology Neurology
DX: G43.009 Migraine without aura, not intractable, without status migrainosus (principal)
CPT/HCPCS: 70544